=== PATIENT | female | born 1955 | race Caucasian/White ===

== ENCOUNTER 2017-06-20 12:37 | Observation (INO) | payer MEDICARE, OTHER ==
[2017-06-20] MEDS ORDERED: LABETALOL HCL 5 MG/ML VIAL IV ONE ×4 (13:19→15:03)
[2017-06-20 13:34] LABS: Hematocrit 41.1 % (37.0-47.0); Hemoglobin 13.7 gm/dL (12.5-16.0); Mean Corpuscular Hemoglobin 29.7 pg (27-31); Mean Corpuscular Hgb Conc 33.3 g/dl (32-36); Mean Platelet Volume 9.2 fl (6.0-9.5); Neutrophil # 3.8 K/mm3 (1.3-6.0); Neutrophil % 56.5 % (42-75.0); Platelet Count 216 K/mm3 (150-450); Red Blood Count 4.62 M/mm3 (4.2-5.4); Red Cell Distribution Width 12.3 % (11.5-14.0); White Blood Count 6.7 K/mm3 (4.0-10.5)
[2017-06-20 13:41] LABS: Albumin * 3.1 gm/dl (3.4-5.0); Anion Gap 11.6 mmol/L (6.8-13.8); Bilirubin, Total 0.2 mg/dL (0.0-1.1); Ca. Corrected For Albumin 9.1 mg/dL (8.4-10.2); Calcium * 8.7 mg/dL (7.9-10.9); Carbon Dioxide 27.6 mmol/L (24-32.6); Potassium 3.2 mmol/L (3.4-4.6)
[2017-06-20 13:59] LABS: Urine Bilirubin Negative (NEGATIVE); Urine Ketone Negative (NEGATIVE); Urine Nitrite Negative (NEGATIVE); Urine Protein Negative (NEGATIVE); Urine Urobilinogen Normal (NORMAL)
[2017-06-20 14:12] LABS: Cocaine Ur Negative (NEGATIVE); Urine Barbiturate Positive (NEGATIVE); Urine Benzodiazepines Negative (NEGATIVE); Urine Opiates Negative (NEGATIVE); Urine PCP Negative (NEGATIVE); Urine THC Negative (NEGATIVE)
[2017-06-20 14:16] LABS: Urine Blood 5 /ul (NEGATIVE)
[2017-06-20 14:17] LABS: Urine Appearance Clear; Urine Bacteria None Seen; Urine Color Yellow; Urine RBC 0-5 /hpf (0-5); Urine WBC 0-5 /hpf (0-5)
[2017-06-20] MEDS ORDERED: MORPHINE SULFATE 2 MG/ML DISP.SYRIN IV ONE ×2 (14:27→14:59)
[2017-06-20] MEDS ORDERED: MORPHINE SULFATE 2 MG/ML DISP.SYRIN ONE ×2 (14:28→15:02)
--- NOTE | 2017-06-20 15:01 | ERNOTE ---
Medical Problem HPI - General Chief Complaint: General Assessment Time Seen by Provider: 06/20/17 13:04 Source: patient, family Exam Limitations: no limitations - Immun/Allergies/Home Medications Immunizations: IMMUNIZATION HX Immunizations Up to Date Yes History of Influenza Vaccine No Hx Pneumococcal Vaccination No Allergies/Adverse Reactions: Allergies No Known Allergies Allergy (Unverified 06/20/17 12:55) Home Medications: HOME MEDICATIONS Albuterol Sulfate [Proair Hfa] 1 - 2 puff IH Q4H PRN 06/20/17 [Last Taken Unknown] Butalbital/Acetaminophen [Acetaminophn-Butalbital 325-50] 1 each PO TID PRN 05/27 [Last Taken Unknown] Carvedilol [Coreg] 12.5 mg PO BID 06/20/17 [Last Taken Unknown] Estradiol [Estrace] 1 mg PO DAILY 06/20/17 [Last Taken Unknown] Fluticasone/Salmeterol [Advair 500-50 Diskus] 1 puff IH BID 06/20/17 [Last Taken Unknown] Gabapentin [Neurontin] 100 mg PO BID 06/20/17 [Last Taken Unknown] HYDROcodone/ACETAMINOPHEN [Hydrocodon-Acetaminophen 5-325] 1 each PO QID PRN 05/27 [Last Taken Unknown] Pravastatin Sodium [Pravachol] 20 mg PO DAILY 06/20/17 [Last Taken Unknown] SUMAtriptan SUCCINATE [Imitrex] 100 mg PO DAILY PRN 06/20/17 [Last Taken Unknown ] Tiotropium [place] [Spiriva] 1 cap IH DAILY 06/20/17 [Last Taken Unknown] Venlafaxine HCl 75 mg PO DAILY 06/20/17 [Last Taken Unknown] Verapamil HCl [Verapamil ER] 120 mg PO HS 06/20/17 [Last Taken Unknown] Zolpidem Tartrate [Ambien] 10 mg PO HS PRN 06/20/17 [Last Taken Unknown] - History of Present History Narrative: Patient has a history of chronic headaches, she has daily headaches some days only mild. She is seeing a neurologist for those headache, takes gabapentin daily, migraine meds as needed for worse pain. She also has a history of HTN treated by Dr Steinberg and usually well controlled (last in the doctors office a month ago). Over the last week she has had a headache that is a worse than her usual headache. She checked her blood pressure at home for the first time yesterday and it was 190's systolic. She is slightly noise and light sensitive, no nausea or vomiting, no vision changes, no chest pain, no other symptoms. Review of Systems - Review of Systems Constitutional: Absent: recent illness, fever EYE: Absent: double vision, vision changes ENT: Absent: nose congestion, sore throat Respiratory: Absent: shortness of breath, cough Cardiology: Absent: chest pain Gastrointestinal/Abdominal: Absent: nausea, vomiting, abdominal pain Genitourinary: Present: no symptoms reported Musculoskeletal: Present: no symptoms reported. Absent: neck pain Skin: Present: no symptoms reported Neurological: Present: See HPI, headache. Absent: weakness, numbness - Patient's Past Medical History Patient History - Medical: Chronic Pain, Depression, Fibromyalgia, Migraines, UTI'S Patient History - Cardiac/Respiratory: COPD, Hypertension, Hyperlipidemia Patient History - Cancer: Cervical Patient History - Surgical Procedures: Hysterectomy Patient History - Other: None - Family History Mother Family History - Medical: Family History - Cardiac/Respiratory: CVA/Stroke Father Family History - Medical: Family History - Cardiac/Respiratory: Myocardial Infarction - Social History Living Situations: home Abuse History: No History of abuse Psych History: Hx of Depression Smoking Status: Former smoker Have you smoked in the past 12 months: No Do you dip or chew tobacco: No Alcohol Use: none Drug Use: none - Immunizations Immunizations Up to Date: Yes Hx Pneumococcal Vaccination: No History of Influenza Vaccine: No Physical Exam - Physical Exam General Appearance: Present: wd/wn, alert, no apparent distress Head Exam: Present: normal inspection, no evidence of injury Eye Exam: Normal inspection: bilateral, PERRL: bilateral, EOMI: bilateral Ears, Nose, Throat: Present: normal ENT inspection, normal pharynx Neck: Present: normal inspection, nontender, supple, full range of motion Respiratory: Present: no respiratory distress, normal breath sounds, no accessory muscle use, lungs clear Cardiovascular/Chest: Present: regular rate, rhythm, no murmur, normal peripheral pulses Extremity Exam: Present: normal inspection Neurological Exam: Present: alert, oriented, normal mood/affect, no motor/ sensory deficits, normal cerebellar test Skin Exam: Present: normal color, warm/dry ED Progress - Results and Orders Patient's Lab Results:: I have reviewed the patient's lab results. - Vital Signs Patient's Vital Signs:: I have reviewed the patient's vital signs. Vital Signs: Vital Signs 06/20/17 06/20/17 06/20/17 12:46 13:46 13:49 Temperature 36.2 C L Pulse Rate 77 70 70 Respiratory 20 17 Rate Blood Pressure 221/119 209/116 209/116 O2 Sat by Pulse 96 97 Oximetry 06/20/17 14:28 Temperature Pulse Rate 69 Respiratory 17 Rate Blood Pressure 192/96 O2 Sat by Pulse 96 Oximetry - EKG EKG: NSR, other - no acute changes, no prior EKG read: Interp. by me - Progress/Reassessment Chief Complaint: General Assessment Progress Note-Subjective: 06/20/17 14:59 minimal pain relieve after morphine and labetolol BP systolic 190's 06/20/17 16:34 headache better, patient vomited once blood pressure not controlled will get head CT, discussed admission for hypertensive crisis 06/20/17 17:16 discussed with kathy Gold to admit, start labetolol drip for blood pressure control Departure Clinical Impression: Hypertensive crisis - Departure Disposition: [facility] Condition: Stable
[2017-06-20] MEDS ORDERED: VERAPAMIL HCL 80 MG TABLET PO ONE (15:29)
[2017-06-20] MEDS ORDERED: VERAPAMIL HCL 80 MG TABLET ONE (15:33)
[2017-06-20] MEDS: LABETALOL HCL 100 MG in NORMAL SALINE 80 ML IV PRN ×5 (17:44→21:51)
[2017-06-20] MEDS ORDERED: ALBUTEROL SULFATE 200 PUFF INHALER IH PRN (20:46)
[2017-06-20] MEDS ORDERED: [UNRECOGNIZED DRUG - OTHER] PO PRN (20:46)
[2017-06-20] MEDS ORDERED: ACETAMINOPHEN PO PRN (20:46)
[2017-06-20] MEDS ORDERED: BUTALBITAL PO PRN (20:46)
[2017-06-20] MEDS ORDERED: HYDROcodone/ACETAMINOPHEN 1 EACH TABLET PO PRN (20:49)
--- NOTE | 2017-06-20 20:53 | HP ---
Chief Complaint - Chief Complaint Date of Service: 06/20/17 Time of Service: 20:30 Chief Complaint: Headache, hypertensive History of Present Illness: 61 years old female adm to the unit with reports of hypertensive crisis and headache. PMH significant for COPD, ( use 2L oxygen at HS) hypertension, hyperlipidemia, migraine, recurrent UTI and fibromyalgia. Pt stated for the past weeks she has been having intermittent headache and things have been very foggy. She denies chest pain, dizziness, palpitation, nausea or vomiting. Family have noticed changes in patient and grew concerned, they took her blood pressure today SBP >190's so they brought her to the ER. In ER CT head negative , she was initiated on labetalol drip and given morphine for headache. Plan to continue drip goal Keep SBP< 180 DBP <110 and wean off drip and initiate oral medications. Plan of care discussed with pt and family they verbalized understanding and agrees. - Patient's Past Medical History Patient History - Medical: Chronic Pain, Depression, Fibromyalgia, Migraines, UTI'S Patient History - Cardiac/Respiratory: COPD - 2L oxygen at nights, Hypertension , Hyperlipidemia Patient History - Cancer: Cervical Patient History - Surgical Procedures: Hysterectomy Patient History - Other: None - Family History Mother Family History - Medical: Family History - Cardiac/Respiratory: CVA/Stroke Father Family History - Medical: Family History - Cardiac/Respiratory: Myocardial Infarction Brother Family History - Medical: Diabetes Type 1 Family History - Cardiac/Respiratory: CVA/Stroke, Myocardial Infarction - Social History Living Situations: alone Abuse History: No History of abuse Psych History: Hx of Depression Smoking Status: Former smoker Have you smoked in the past 12 months: No Do you dip or chew tobacco: No Alcohol Use: none Drug Use: none - Immunizations Immunizations Up to Date: Yes Hx Pneumococcal Vaccination: No History of Influenza Vaccine: No Review Of Systems (GEN) - Review of Systems Generalized/Overall Review: Present: No Symptoms Reported EENTM: Present: No Symptoms Reported Respiratory: Present: No Symptoms Reported Cardiac: Present: No Symptoms Reported Abdominal: Present: No Symptoms Reported Genitourinary: Present: No Symptoms Reported Musculoskeletal: Present: No Symptoms Reported Neurological: Present: Headache Skin: Present: No Symptoms Reported Endocrine: Present: No Symptoms Reported Immunizations: IMMUNIZATION HX Immunizations Up to Date Yes History of Influenza Vaccine No Hx Pneumococcal Vaccination No Allergies/Adverse Reactions: Allergies Allergy/AdvReac Type Severity Reaction Status Date / Time No Known Allergies Allergy Unverified 06/20/17 12:55 Home Medications: HOME MEDICATIONS Albuterol Sulfate [Proair Hfa] 1 - 2 puff IH Q4H PRN 06/20/17 [Last Taken Unknown] Butalbital/Acetaminophen [Acetaminophn-Butalbital 325-50] 1 each PO TID PRN 05/27 [Last Taken Unknown] Carvedilol [Coreg] 25 mg PO BID 06/20/17 [Last Taken Unknown] Estradiol [Estrace] 1 mg PO DAILY 06/20/17 [Last Taken Unknown] Fluticasone/Salmeterol [Advair 500-50 Diskus] 1 puff IH BID 06/20/17 [Last Taken Unknown] Gabapentin [Neurontin] 100 mg PO BID 06/20/17 [Last Taken Unknown] HYDROcodone/ACETAMINOPHEN [Hydrocodon-Acetaminophen 5-325] 1 each PO QID PRN 05/27 [Last Taken Unknown] Pravastatin Sodium [Pravachol] 20 mg PO DAILY 06/20/17 [Last Taken Unknown] RX: Venlafaxine HCl 75 mg PO DAILY 06/20/17 [Last Taken Unknown] SUMAtriptan SUCCINATE [Imitrex] 100 mg PO DAILY PRN 06/20/17 [Last Taken Unknown ] Tiotropium [place] [Spiriva] 1 cap IH DAILY 06/20/17 [Last Taken Unknown] Verapamil HCl [Verapamil ER] 120 mg PO HS 06/20/17 [Last Taken Unknown] Zolpidem Tartrate [Ambien] 10 mg PO HS 06/20/17 [Last Taken Unknown] Exam - Exam Vital Signs: Vital Signs - Last Taken Temp 36.6 C 06/20/17 19:58 Pulse 75 06/20/17 20:17 Resp 16 06/20/17 20:17 BP 168/111 06/20/17 20:17 Pulse Ox 98 06/20/17 20:17 Constitutional: Present: Alert, Oriented x3, Cooperative, Well developed, No distress, Young ENT Exam: Present: hard of hearing Eye Exam: bilateral eye: normal inspection Neck: Present: full range of motion Back Exam: Present: normal inspection Breasts: Present: Exam deferred Respiratory: Present: chest non-tender, lungs clear, normal breath sounds, no respiratory distress Cardiovascular/Chest: Present: normal peripheral pulses, regular rate, rhythm, no chest tenderness, no edema, no gallop, no JVD Peripheral Pulses: dorsalis-pedis (R): 3+, dorsalis-pedis (L): 3+ Abdomen: Present: Normal bowel sounds, soft, nontender, nondistended, no rebound tenderness /Rectal: Present: Exam deferred Extremity: Present: normal range of motion, non-tender, normal inspection, no pedal edema, no calf tenderness Skin Exam: Present: warm/dry Neurologic: Present: oriented x 3 Appearance: Present: appropriate appearance Eye contact: Present: cooperative, good eye contact Thoughts: Present: normal thought pattern Diagnostic Studies: Laboratory Results WBC 6.7 K/mm3 (4.0-10.5) 06/20/17 13:27 RBC 4.62 M/mm3 (4.2-5.4) 06/20/17 13:27 Hgb 13.7 gm/dL (12.5-16.0) 06/20/17 13:27 Hct 41.1 % (37.0-47.0) 06/20/17 13:27 MCV 89.0 fl (78-100) 06/20/17 13:27 MCH 29.7 pg (27-31) 06/20/17 13:27 MCHC 33.3 g/dl (32-36) 06/20/17 13:27 RDW 12.3 % (11.5-14.0) 06/20/17 13:27 Plt Count 216 K/mm3 (150-450) 06/20/17 13:27 MPV 9.2 fl (6.0-9.5) 06/20/17 13:27 Immature Gran % (Auto) 0.30 % (0.001-0.429) 06/20/17 13:27 Immature Gran # (Auto) 0.02 K/mm3 (0.000-0.0310) 06/20/17 13:27 Neutrophils % 56.5 % (42-75.0) 06/20/17 13:27 Lymphocytes % 33.4 % (20-51) 06/20/17 13:27 Monocytes % 7.3 % (0.0-9) 06/20/17 13:27 Eosinophils % 1.8 % (0.0-3.0) 06/20/17 13:27 Basophils % 0.7 % (0.0-1.0) 06/20/17 13:27 Nucleated RBC % 0.0 k/mm3 (0-1) 06/20/17 13:27 Neutrophils # 3.8 K/mm3 (1.3-6.0) 06/20/17 13:27 Lymphocytes # 2.3 k/mm3 (1.5-3.5) 06/20/17 13:27 Monocytes # 0.5 k/mm3 (0.0-1.0) 06/20/17 13:27 Eosinophils # 0.1 k/mm3 (0.0-0.7) 06/20/17 13:27 Absolute Basophils 0.1 k/mm3 (0.0-0.1) 06/20/17 13:27 Sodium 143 mmol/L (132-142) H 06/20/17 13:27 Plasma Sodium 143 mmol/L (130-142) H 06/20/17 13:27 Potassium 3.2 mmol/L (3.4-4.6) L 06/20/17 13:27 Chloride 107 mmol/L (97-106) H 06/20/17 13:27 Carbon Dioxide 27.6 mmol/L (24-32.6) 06/20/17 13:27 Anion Gap 11.6 mmol/L (6.8-13.8) 06/20/17 13:27 BUN 9 mg/dL (3-23) 06/20/17 13:27 Creatinine 0.82 mg/dL (0.4-1.4) 06/20/17 13:27 Est GFR (Non-Af Amer) 76 mL/min (60-130) 06/20/17 13:27 BUN/Creatinine Ratio 11.0 (9.0-21.6) 06/20/17 13:27 Random Glucose 102 mg/dL (70-110) 06/20/17 13:27 Calcium 8.7 mg/dL (7.9-10.9) 06/20/17 13:27 Calcium Adj for Albumin 9.1 mg/dL (8.4-10.2) 06/20/17 13:27 Total Bilirubin 0.2 mg/dL (0.0-1.1) 06/20/17 13:27 AST 14 U/L (0-48) 06/20/17 13:27 ALT 22 U/L (19-67) 06/20/17 13:27 Alkaline Phosphatase 107 U/L (50-170) 06/20/17 13:27 Total Protein 7.0 gm/dL (6.2-8.2) 06/20/17 13:27 Albumin 3.1 gm/dl (3.4-5.0) L 06/20/17 13:27 Urine Color Yellow 06/20/17 13:49 Urine Appearance Clear 06/20/17 13:49 Urine pH 6.0 pH (5.0-7.0) 06/20/17 13:49 Ur Specific [place] 1.010 SP.GR. (1.005-1.010) 06/20/17 13:49 Urine Protein Negative mg/dL (NEGATIVE) 06/20/17 13:49 Urine Glucose (UA) Negative mg/dL (NEGATIVE) 06/20/17 13:49 Urine Ketones Negative mg/dL (NEGATIVE) 06/20/17 13:49 Urine Blood 5 /ul (NEGATIVE) H 06/20/17 13:49 Urine Nitrate Negative (NEGATIVE) 06/20/17 13:49 Urine Bilirubin Negative mg/dl (NEGATIVE) 06/20/17 13:49 Urine Urobilinogen Normal EU/dl (NORMAL) 06/20/17 13:49 Ur Leukocyte Esterase Negative /ul (NEGATIVE) 06/20/17 13:49 Urine RBC 0-5 /hpf (0-5) 06/20/17 13:49 Urine WBC 0-5 /hpf (0-5) 06/20/17 13:49 Ur Epithelial Cells 0-5 /hpf (0-5) 06/20/17 13:49 Urine Bacteria None seen (NONE) 06/20/17 13:49 Urine Culture Comments No culture indicated 06/20/17 13:49 Urine Opiates Screen Negative (NEGATIVE) 06/20/17 13:49 Barbiturate Screen Positive (NEGATIVE) H 06/20/17 13:49 Ur Phencyclidine Scrn Negative (NEGATIVE) 06/20/17 13:49 Urine Amphetamine Negative (NEGATIVE) 06/20/17 13:49 U Benzodiazepines Scrn Negative (NEGATIVE) 06/20/17 13:49 Urine Cocaine Screen Negative (NEGATIVE) 06/20/17 13:49 Urine Marijuana (THC) Negative (NEGATIVE) 06/20/17 13:49 CT head no acute intracranial abnormality Assessment/Plan - Narrative Narrative: Hypertensive crisis On adm BP 198/130 Continue with Labetalol drip goal SBP <180 and DBP <110 Plan to wean drip and continue with home oral medications Monitor vital signs. Hyperlipidemia- stable continue with home medications COPD- stable continue with home oxygen at nights Resume home medications Headache -possible due to hypertensive crisis or pt migraine continue with Imitrex and norco. Code status: Full GI ppx: Pepcid VTE ppx:SCD and ambulate Time 30 minutes and case discussed with Dr Weber - Assessment/Plan (1) Hypertensive crisis Problem: Acute (2) Migraine Problem: Acute (3) COPD (chronic obstructive pulmonary disease) Problem: Chronic (4) Hyperlipidemia Problem: Chronic
[2017-06-20] MEDS ORDERED: CARVEDILOL 12.5 MG TABLET PO SCH (21:00)
[2017-06-20] MEDS: FLUTICASONE/SALMETEROL 14 PUFF DISK.W.DEV IH SCH (21:00)
[2017-06-20] MEDS ORDERED: ZOLPIDEM TARTRATE 10 MG TABLET PO SCH (21:00)
[2017-06-20] MEDS: GABAPENTIN 100 MG CAPSULE PO SCH (21:10)
[2017-06-20] MEDS ORDERED: SUMAtriptan SUCCINATE 50 MG TABLET PO PRN (21:20)
[2017-06-20] MEDS ORDERED: ONDANSETRON HCL/PF 2 MG/ML VIAL IV PRN (21:36)
[2017-06-20] MEDS ORDERED: HYDROcodone/ACETAMINOPHEN 1 EACH TABLET PO ONE (21:37)
[2017-06-20] MEDS ORDERED: VERAPAMIL HCL 120 MG TABLET.SA PO SCH (23:00)
[2017-06-20] MEDS ORDERED: CARVEDILOL 25 MG TABLET ONE (23:05)
[2017-06-20] MEDS: NORMAL SALINE 1,000 ML IV PRN (23:38)
[2017-06-21] MEDS ORDERED: NORMAL SALINE 250 ML IV ONE (00:05)
[2017-06-21] MEDS ORDERED: NORMAL SALINE 500 ML IV ONE (00:25)
[2017-06-21] MEDS: NORMAL SALINE 1,000 ML IV PRN (02:30)
--- NOTE | 2017-06-21 06:10 | PN ---
Subjective - Date and Time Seen Date: 06/21/17 Time: 06:09 Subjective Narrative: Patient seen today AOX3 no acute distress, she denies headache and anticipating discharge home. pt stated she is in need of a new PCP and wants to follow up with Dr hodge upon discharge. Plan ofc are discussed with pt she verbalized understanding and agrees. Objective - Review of Systems Generalized/Overall Review: Reports: No Symptoms Reported EENTM: Reports: No Symptoms Reported Respiratory: Reports: No Symptoms Reported Cardiac: Reports: No Symptoms Reported Abdominal: Reports: No Symptoms Reported Genitourinary Symptoms: Reports: No Symptoms Reported Musculoskeletal Complaints: Reports: No Symptoms Reported Neurological: Reports: No Symptoms Reported Skin: Reports: No Symptoms Reported Endocrine: Reports: No Symptoms Reported - Vitals Vitals: Last Vital Signs Temp 36.9 C 06/21/17 02:20 Pulse 96 06/21/17 05:50 Resp 16 06/21/17 05:50 BP 124/77 06/21/17 05:50 Pulse Ox 100 06/21/17 05:50 - EKG/Xray Findings EKG: NSR - Exam Constitutional: Present: Alert, Oriented x3, Cooperative, Well developed ENT Exam: Present: hearing grossly normal Neck: Present: full range of motion Breasts: Present: Exam deferred Respiratory: Present: chest non-tender, lungs clear, normal breath sounds, no respiratory distress Cardiovascular/Chest: Present: normal peripheral pulses, regular rate, rhythm, no chest tenderness, no edema, no gallop, no JVD Abdomen: Present: Normal bowel sounds, soft, nontender, nondistended, no rebound tenderness, no hepatospenomegaly /Rectal: Present: Exam deferred Extremity: Present: normal range of motion, non-tender, normal inspection, no pedal edema, no calf tenderness Skin Exam: Present: warm/dry Neurologic: Present: oriented x 3 Appearance: Present: appropriate appearance Eye contact: Present: cooperative, good eye contact Thoughts: Present: normal thought pattern Assessment/Plan Plan Narrative: Hypertensive crisis- resolved On adm BP 198/130---->124/77 Labetalol drip was discontinued overnight May resume with oral home medications Monitor vital signs. Hyperlipidemia- stable continue with home medications COPD- stable continue with home oxygen at nights Resume home medications Headache -Resolved possible due to hypertensive crisis or pt migraine continue with Imitrex and norco. Code status: Full GI ppx: Pepcid VTE ppx:SCD and ambulate Time 20 minutes and case discussed with Dr Hodge - Problems/Diagnosis (1) Hypertensive crisis Problem: Resolved (2) Migraine Problem: Chronic (3) COPD (chronic obstructive pulmonary disease) Problem: Chronic (4) Hyperlipidemia Problem: Chronic
[2017-06-21] MEDS ORDERED: ALBUTEROL SULFATE 2.5 MG/0.5 ML VIAL.NEB IH PRN (06:46)
[2017-06-21] MEDS: FLUTICASONE/SALMETEROL 14 PUFF DISK.W.DEV IH SCH (08:11)
[2017-06-21] MEDS: GABAPENTIN 100 MG CAPSULE PO SCH (08:12)
[2017-06-21] MEDS ORDERED: KETOROLAC TROMETHAMINE 30 MG/ML VIAL IV ONE (08:37)
[2017-06-21] MEDS ORDERED: CARVEDILOL 25 MG TABLET PO SCH (09:00)
[2017-06-21] MEDS ORDERED: VENLAFAXINE HCL 75 MG TABLET PO SCH (09:00)
[2017-06-21] MEDS ORDERED: ESTRADIOL 0.5 MG TABLET PO SCH (09:00)
[2017-06-21] MEDS ORDERED: TIOTROPIUM BROMIDE 5 CAP INHALER IH SCH (09:00)
[2017-06-21] MEDS ORDERED: FLU VACC QS2017-18(6MOS UP)/PF 60 MCG/0.5 ML SYRINGE IM ONE (09:00)
[2017-06-21 09:35] LABS: Hematocrit 37.4 % (37.0-47.0); Hemoglobin 12.3 gm/dL (12.5-16.0); Mean Cell Volume 90.8 fl (78-100); Mean Corpuscular Hemoglobin 29.9 pg (27-31); Mean Corpuscular Hgb Conc 32.9 g/dl (32-36); Mean Platelet Volume 9.1 fl (6.0-9.5); Platelet Count 183 K/mm3 (150-450); Red Blood Count 4.12 M/mm3 (4.2-5.4); Red Cell Distribution Width 12.7 % (11.5-14.0); White Blood Count 6.5 K/mm3 (4.0-10.5)
[2017-06-21] MEDS: VERAPAMIL HCL 80 MG TABLET PO SCH ×3 (09:59→16:23)
[2017-06-21 10:18] LABS: ALT 19 U/L (19-67); AST 13 U/L (0-48); Albumin * 2.7 gm/dl (3.4-5.0); Alkaline Phosphatase * 88 U/L (50-170); Anion Gap 11.7 mmol/L (6.8-13.8); BUN/Creatinine Ratio 7.1 (9.0-21.6); Bilirubin, Total 0.2 mg/dL (0.0-1.1); Blood Urea Nitrogen 6 mg/dL (3-23); Calcium * 8.3 mg/dL (7.9-10.9); Carbon Dioxide 27.6 mmol/L (24-32.6); Chloride 108 mmol/L (97-106); Glucose * 107 mg/dL (70-110); Potassium 3.3 mmol/L (3.4-4.6); Sodium 144 mmol/L (132-142); TSH * 2.564 uIU/mL (0.358-3.74); Total Protein 6.1 gm/dL (6.2-8.2); Troponin I Less than 0.017 ng/ml (0.00-0.10)
[2017-06-21] MEDS ORDERED: ALBUTEROL INHALER INH PRN (11:56)
[2017-06-21] MEDS ORDERED: POTASSIUM CHLORIDE 20 MEQ TABLET.SA PO ONE (12:44)
--- NOTE | 2017-06-21 16:56 | DS ---
(1) Hypertensive crisis Diagnosis(s): María is a 61 yo female that presented to the [facility] ER with severe headache, different than her usual migraines. Her blood pressure was found to be 221/119. She was give IV medications of labetalol and morphine to help blood pressure and pain. She was admitted to observation in the SCU for close monitoring and on an IV labetalol drip. Blood pressure was brought down slowly. Her home medications were continued and verapamil was increased. Blood pressure returned to normal. No precipitating causes were identified. She was monitored and with stable blood pressure and resolved headache she was discharged to home with the increase in her verapamil. She will follow up with me in clinic. Problem: Resolved Procedures Performed: none Discharge Disposition: Home self care Disposition: Home self-care Condition: Stable Discharge Activity: Activity as tolerated Discharge Diet: Low salt Referrals: Paramjit Weber, [Staff Physician] - ( or Tuesday of this week, keep already scheduled appointment) Problem Oriented Discharge Instructions to Patient/Family: Chronic Obstructive Pulmonary Disease, [id number], Recurrent Migraine Headache, [id number], Hypertension, [id number] Additional Patient Instructions (free text): Needs appointment for 06/23 or 06/24 for blood pressure check with Dr. Melendez nurses. Follow up with Dr. Weber on 06-30-17 @ 2:00pm. Prescriptions (Any new or edited meds): Verapamil HCl [Calan Sr] 240 mg PO HS #90 tablet.sa Complete Home Medications List: Complete Home Medication List: Albuterol Sulfate [Proair Hfa] 1 - 2 puff IH Q4H PRN 06/20/17 Butalbital/Acetaminophen [Butalbital-Acetaminophn 50-325] 1 each PO TID PRN 05/27 Carvedilol [Coreg] 25 mg PO BID 06/20/17 Estradiol [Estrace] 1 mg PO DAILY 06/20/17 Fluticasone/Salmeterol [Advair 500-50 Diskus] 1 puff IH BID 06/20/17 Gabapentin [Neurontin] 100 mg PO BID 06/20/17 HYDROcodone/ACETAMINOPHEN [Hydrocodone-Acetamin 5-325 mg] 1 each PO QID PRN 05/27 Pravastatin Sodium [Pravachol] 20 mg PO DAILY 06/20/17 SUMAtriptan SUCCINATE [Imitrex] 100 mg PO DAILY PRN 06/20/17 Tiotropium [place] [Spiriva] 1 cap IH DAILY 06/20/17 Venlafaxine HCl 75 mg PO DAILY 06/20/17 Zolpidem Tartrate [Ambien] 10 mg PO HS 06/20/17 Verapamil HCl [Calan Sr] 240 mg PO HS #90 tablet.sa 06/21/17 Azithromycin [Zithromax] 250 mg PO DAILY #4 tablet 07/04/17 Promethazine HCl/Codeine [Prometh-Codein 6.25-10 mg/5 ml] 5 ml PO Q4H PRN #120 ml 07/04/17 predniSONE [Prednisone] 2 tab PO DAILY #12 tab 07/04/17
[2017-06-21 17:35] VITALS: BP 153/91
[2017-06-21] MEDS ORDERED: SIMVASTATIN 10 MG TABLET PO SCH (21:00)
== END 2017-06-21 17:32 | disposition home or self-care (01) ==
LOC: ER 12:37 → SCU 17:25 → OBSVTOIN 06-21 12:43 → INTOOBSV 06-21 12:43
PROVIDERS: ADMIT Family Medicine; ATTEND Family Medicine
DX: I16.9 Hypertensive crisis, unspecified (principal); G43.919 Migraine, unspecified, intractable, without status migrainosus; J44.9 Chronic obstructive pulmonary disease, unspecified; Z87.891 Personal history of nicotine dependence; M79.7 Fibromyalgia; E78.5 Hyperlipidemia, unspecified; I10 Essential (primary) hypertension; Z23 Encounter for immunization
CPT/HCPCS: 36415; 70450; 80053; 80307; 81001; 84443; 84484; 85025; 90471; 90686; 93005; 96365; 96366; 96375; 96376; 99285; G0378; J2405